=== PATIENT | male | born 1985 | race Caucasian/White ===

== ENCOUNTER 2020-11-19 20:25 | Emergency (ER) | payer OTHER ==
[~2020-11-19] VITALS: Ht 170.2 cm; Wt 87.8 kg
[~2020-11-19 20:25] MED LIST: FLEXERIL PO; IBUP400T PO; VICO5TAB OR
[2020-11-19] MEDS ORDERED: ACET32TAB PO (20:41)
[2020-11-19] MEDS ORDERED: IBUPROFEN 600MG TAB PO ONE (21:50)
--- NOTE | 2020-11-19 22:43 | REPVR ---
PROCEDURE INFORMATION: Exam: XR Chest Exam date and time: 11/19/2020 10:00 PM Age: 34 years old Clinical indication: Other: Jiménez virus; Additional info: Coronavirus workup TECHNIQUE: Imaging protocol: XR of the chest. Views: 1 view. COMPARISON: No relevant prior studies available. FINDINGS: LUNGS and PLEURAL SPACE: Lung volumes are low. Bibasal patchy airspace opacities are noted which may be secondary to atelectasis, infiltrate/pneumonia and/or trace amounts of pleural fluid. Clinical correlation is advised. Consider follow-up within a few weeks, to confirm resolution. No pneumothorax. No pulmonary vascular redistribution. MEDIASTINUM: There is no mediastinal shift or widening. CARDIAC SILHOUETTE: Cardiac size is difficult to evaluate secondary to low lung volumes. Cardiac size may be borderline. BONY THORAX: No acute findings are seen. IMPRESSION: Low lung volumes. Bibasal opacities as discussed above. Electronically signed by: Rahat Nunez On 11/19/2020 22:43:11 PM
[2020-11-19 22:53] LABS: BASO % 0.1 % (0.0-1.0); HEMATOCRIT 45.6 % (42.0-52.0); HEMOGLOBIN 16.2 g/dl (13.5-17.5); LYMPH # 1.2 10^3/uL (1.5-5.0); LYMPH % 17.4 % (24.0-44.0); MEAN CORPUSCULAR HEMOGLOBIN 31.4 pg (27.0-33.0); MEAN CORPUSCULAR HGB CONC 35.5 g/dl (32.0-36.5); MEAN CORPUSCULAR VOLUME 88.4 fl (80.0-96.0); MONO # 0.7 10^3/uL (0.0-0.8); MONO % 9.4 % (2.0-8.0); NEUTROPHILS % 72.8 % (36.0-66.0); PLATELET COUNT, AUTOMATED 160 10^3/uL (150-450); RED BLOOD COUNT 5.16 10^6/uL (4.30-6.10); WHITE BLOOD COUNT 6.9 10^3/uL (4.0-10.0)
[2020-11-19] MEDS: dexameTHASONE 20MG/5ML VIAL (J1100 PER 1MG) IV ONE (22:55)
[2020-11-19 23:25] LABS: ALBUMIN 3.9 GM/DL (3.2-5.2); ALT/SGPT 46 U/L (12-78); BILIRUBIN,TOTAL 0.8 MG/DL (0.2-1.0); BLOOD UREA NITROGEN 11 MG/DL (7-18); CALCIUM LEVEL 8.9 MG/DL (8.5-10.1); CARBON DIOXIDE LEVEL 29 MEQ/L (21-32); CHLORIDE LEVEL 99 MEQ/L (98-107); CREATININE FOR GFR 1.19 MG/DL (0.70-1.30); GLOMERULAR FILTRATION RATE > 60.0 (>60); GLUCOSE, FASTING 109 MG/DL (70-100); POTASSIUM SERUM 3.9 MEQ/L (3.5-5.1); SODIUM LEVEL 134 MEQ/L (136-145); TOTAL PROTEIN 7.2 GM/DL (6.4-8.2)
--- NOTE | 2020-11-20 00:02 | CR.PDOC ---
General Date of Consultation: November 20, 2020 Referring Provider: JAQUAN FERREIRA Attending Physician: JAQUAN FERREIRA Consultation TIME OF SERVICE: 1205am CHIEF COMPLAINT: dyspnea HISTORY OF PRESENT ILLNESS: This 34 yr old M presented w c/o dyspnea, cough, fever, chills and nausea w/o vomiting or diarrhea. Per d/w his RN Courtney the patients O2 sats were 92% and dropped to 91% with ambulation but his RR remained below 22. 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 HOME MEDICATIONS: Please see below. PHYSICAL EXAMINATION: Vital Signs Date Time Temp Pulse Resp B/P (MAP) Pulse Ox O2 Delivery O2 Flow Rate FiO2 11/19/20 20:26 102.8 112 16 127/83 (98) 92 Room Air GENERAL APPEARANCE: well nourished and developed / ND PSYCHIATRIC: A &ox 3 able to understand and follow all commands LABORATORY DATA: 11/19/20 21:46 11/19/20 21:46: Immature Granulocyte % (Auto) 0.3, Neutrophils (%) (Auto) 72.8H, Lymphocytes (%) (Auto) 17.4L, Monocytes (%) (Auto) 9.4H, Eosinophils (%) (Auto) 0.0, Basophils (%) (Auto) 0.1, Neutrophils # (Auto) 5.0, Lymphocytes # (Auto) 1.2L, Monocytes # (Auto) 0.7, Eosinophils # (Auto) 0.0, Basophils # (Auto) 0.0, Nucleated Red Blood Cells % (auto) 0.0, D-Dimer, Quantitative 597.96H, Anion Gap 6L, Glomerul ar Filtration Rate > 60.0, Lactic Acid Level 0.9, Calcium Level 8.9, Total Bilirubin 0.8, Aspartate Amino Transf (AST/SGOT) 20, Alanine Aminotransferase (ALT/SGPT) 46, Alkaline Phosphatase 61, Total Protein 7.2, Albumin 3.9, Albumin/Globulin Ratio 1.2 IMAGING: Chest xray IMPRESSION: Low lung volumes. Bibasal opacities as discussed above. MICROBIOLOGY: COVID + ASSESSMENT: is a 34 yr old w/o chronic medical problems who was diagnosed with COVID 19. His qCIS score is 2 which puts him in the low risk category. PLAN: Because he is not hypoxemic and his qCSI score puts him is in the low risk category, he can be discharged home with albuterol and arrangements to have a home RN / public health RN check on him. I instructed the patient to return to the hospital if his symptoms worsen. Allergies Coded Allergies: No Known Allergies (Unverified , 11/19/20) Home Medications Scheduled Dexamethasone (Decadron) 4 Mg Tablet, 6 MG PO ONCE for 10 Days, #10 Scheduled PRN Albuterol Sulfate (Proair Hfa) 8.5 Gm Hfa.aer.ad, 2 PUFF INH Q4HP PRN for SOB/WHEEZING for 10 Days, #1 Ibuprofen (Ibuprofen) 200 Mg Tablet, 800 MG PO TID PRN for PAIN / FEVER, (Reported) SAMMY MONTESINOS MD November 20, 2020 00:02
[2020-11-20] MEDS ORDERED: IBUP-1363 PO (00:06)
[2020-11-20] MEDS ORDERED: PROAAER10 INH (00:09)
[2020-11-20] MEDS ORDERED: DECA4TAB PO (00:09)
[2020-11-20] MEDS: dexameTHASONE 20MG/5ML VIAL (J1100 PER 1MG) IV ONE (00:10)
[2020-11-20 00:44] VITALS: BP 115/73
== END 2020-11-20 00:45 | disposition home or self-care (01) ==
LOC: M ED 20:25
DX: U07.1 COVID-19 (principal); J18.9 Pneumonia, unspecified organism

== ENCOUNTER 2020-11-22 17:46 | Emergency (ER) | payer OTHER ==
[~2020-11-22] VITALS: Ht 170.2 cm; Wt 86.8 kg
[~2020-11-22 17:46] MED LIST changes: +ACET32TAB PO; +DECA4TAB PO; +IBUP-1363 PO; +PROAAER10 INH
[2020-11-22 18:15] VITALS: BP 130/77
== END 2020-11-22 18:59 | disposition home or self-care (01) ==
LOC: M ED 17:46
DX: U07.1 COVID-19 (principal); Z79.899 Other long term (current) drug therapy

== ENCOUNTER 2021-01-31 12:26 | Emergency (ER) | payer OTHER ==
[~2021-01-31] VITALS: Ht 165.1 cm; Wt 86.4 kg
--- NOTE | 2021-01-31 13:13 | REP ---
INDICATION: CHEST PAIN. COMPARISON: Comparison chest x-ray November 19, 2020. TECHNIQUE: Portable upright AP chest radiograph. FINDINGS: There is platelike atelectasis in the right base, somewhat improved from the November 19, 2020 study. Lung perry are otherwise clear. Pleural angles are sharp. Cardiomediastinal silhouette is unremarkable. No bony abnormality is seen.. IMPRESSION: Improved platelike atelectasis right base. Otherwise no acute disease.. <Electronically signed by Greg Womack > 01/31/21 [id number]
[2021-01-31 14:29] LABS: BASO % 0.2 % (0.0-1.0); HEMATOCRIT 45.3 % (42.0-52.0); HEMOGLOBIN 15.9 g/dl (13.5-17.5); LYMPH # 0.5 10^3/uL (1.5-5.0); LYMPH % 8.3 % (24.0-44.0); MEAN CORPUSCULAR HEMOGLOBIN 30.9 pg (27.0-33.0); MEAN CORPUSCULAR HGB CONC 35.1 g/dl (32.0-36.5); MEAN CORPUSCULAR VOLUME 88.1 fl (80.0-96.0); MONO # 0.3 10^3/uL (0.0-0.8); MONO % 4.6 % (2.0-8.0); NEUTROPHILS # 4.7 10^3/uL (1.5-8.5); NEUTROPHILS % 86.7 % (36.0-66.0); PLATELET COUNT, AUTOMATED 138 10^3/uL (150-450); RED BLOOD COUNT 5.14 10^6/uL (4.30-6.10); WHITE BLOOD COUNT 5.5 10^3/uL (4.0-10.0)
[2021-01-31 15:14] LABS: BLOOD UREA NITROGEN 10 MG/DL (7-18); CALCIUM LEVEL 8.5 MG/DL (8.5-10.1); CARBON DIOXIDE LEVEL 24 MEQ/L (21-32); CHLORIDE LEVEL 103 MEQ/L (98-107); CREATININE FOR GFR 0.98 MG/DL (0.70-1.30); GLOMERULAR FILTRATION RATE > 60.0 (>60); GLUCOSE, FASTING 95 MG/DL (70-100); POTASSIUM SERUM 4.2 MEQ/L (3.5-5.1); SODIUM LEVEL 136 MEQ/L (136-145)
[2021-01-31] MEDS ORDERED: ISOVUE-370 76% 100ML VIAL As Ordered ONE (15:15)
--- NOTE | 2021-01-31 15:42 | REP ---
INDICATION: rule out PE. COMPARISON: None. TECHNIQUE: CT angiogram chest performed following the intravenous administration of 100 cc of Isovue 370. Sagittal and coronal reconstruction images are performed. FINDINGS: Lungs: There is bibasilar atelectatic change. Mediastinum: No adenopathy. Pulmonary arteries: No evidence of pulmonary embolism. Khalida: No adenopathy. Axilla: Several left axillary lymph nodes are present, the largest measures 0.4 cm in short axis. Pleura: No effusion. Heart: Not enlarged. Thoracic aorta: No aneurysm or dissection. Upper abdominal structures: There is diffuse fatty infiltration of the liver. Visualized osseous structures: Unremarkable. IMPRESSION: No CT evidence of pulmonary embolism. Bibasilar atelectatic changes. Mild left axillary adenopathy. This could be due to recent vaccination in the left arm, correlate clinically. <Electronically signed by Hermelindo Mcgill > 01/31/21 [id number]
[2021-01-31 18:44] VITALS: BP 122/70
--- NOTE | 2021-02-01 21:19 | ECGEPIP ---
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
--- NOTE | 2021-02-01 21:22 | ECGEPIP ---
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
== END 2021-01-31 18:46 | disposition home or self-care (01) ==
LOC: M ED 12:26
DX: R07.89 Other chest pain (principal); T50.Z95A Adverse effect of other vaccines and biological substances, initial encounter; I45.19 Other right bundle-branch block; J45.909 Unspecified asthma, uncomplicated; Z86.16 Personal history of COVID-19
CPT/HCPCS: 71045; 71275; 80048; 84484; 85025; 93005; 93041; 94760; 99285; Q9967

== ENCOUNTER 2025-04-15 11:20 | Emergency (ER) | payer OTHER ==
[~2025-04-15] VITALS: Ht 170.2 cm; Wt 90.1 kg
[2025-04-15] MEDS ORDERED: TEST200I14 (11:39)
[2025-04-15] MEDS ORDERED: MELO15TA28 (11:39)
[2025-04-15] MEDS ORDERED: DICL100G10 (11:39)
[2025-04-15 14:52] VITALS: BP 121/75; TEMP 96.8; O2SAT 100
== END 2025-04-15 14:53 | disposition home or self-care (01) ==
LOC: M ED 11:20
DX: J02.9 Acute pharyngitis, unspecified (principal); M54.9 Dorsalgia, unspecified